=== PATIENT | male | born 1980 | race Caucasian/White ===

== ENCOUNTER 2017-02-17 14:07 | Emergency (ER) | payer MEDICAID ==
[2017-02-17] MEDS: IBUPROFEN 600 MG TAB PO (18:01)
== END 2017-02-17 18:48 | disposition home or self-care (01) ==
LOC: FTE 14:07
DX: S61.215A Laceration without foreign body of left ring finger without damage to nail, initial encounter (principal); W20.8XXA Other cause of strike by thrown, projected or falling object, initial encounter; Y92.9 Unspecified place or not applicable
CPT/HCPCS: 12001; 73140; 99283-25